=== PATIENT | male | born 1975 | race Two or more races ===

== ENCOUNTER 2018-06-01 11:24 | Emergency (ER) | payer MEDICAID ==
[~2018-06-01] VITALS: Ht 170.2 cm; Wt 75.0 kg
[2018-06-01] MEDS ORDERED: TETANUS, DIPHTHERIA, PERTUSSIS VAC/PF 0.5ML (>7YR OLD) IM ONE (13:45)
[2018-06-01] MEDS ORDERED: BACITRACIN ZINC OINT UDPKT TOP ONE (13:45)
[2018-06-01] MEDS ORDERED: LIDOCAINE HCL/PF 1% 10 MG/ML 5ML VIAL IJ ONE (13:45)
[2018-06-01 16:00] VITALS: BP 123/88
== END 2018-06-01 16:16 | disposition home or self-care (01) ==
LOC: ER 14:18
DX: S70.362A Insect bite (nonvenomous), left thigh, initial encounter (principal); F17.200 Nicotine dependence, unspecified, uncomplicated; W57.XXXA Bitten or stung by nonvenomous insect and other nonvenomous arthropods, initial encounter; Y93.89 Activity, other specified; Y92.89 Other specified places as the place of occurrence of the external cause; Y99.8 Other external cause status
CPT/HCPCS: 10060; 90471; 90715; 99283; J3490